=== PATIENT | female | born 1950 | race Caucasian/White ===

== ENCOUNTER 2023-04-18 08:05 | Outpatient (CLI) | payer OTHER, SELFPAY ==
--- NOTE | 2023-04-18 09:00 | NEURO_ITS ---
PATIENT NUMBER: [id number] IMPRESSION: Patient reports a history of left hand and bilateral lower extremity numbness. # Right ulnar neuropathy. # Left ulnar neuropathy with evidence of slowing across the elbow. # Normal lower extremity Nerve Conduction Study. # Normal EMG. # Clinical correlation is recommended. Nerve Conduction Studies Anti Sensory Summary Table Stim Site NR Peak (ms) P-T Amp (?V) Site1 Site2 Delta-P (ms) Dist (cm) Vincent (m/s) Left Median Anti Sensory (2-3nd Digit) Wrist 2.9 66.1 Wrist 2-3nd Digit 2.9 14.0 48 Wrist 2.9 44.9 Wrist 2-3nd Digit 2.9 14.0 48 Right Median Anti Sensory (2-3nd Digit) Wrist 2.8 66.5 Wrist 2-3nd Digit 2.8 14.0 50 Wrist 2.9 50.4 Wrist 2-3nd Digit 2.8 14.0 50 Left Radial Anti Sensory (Base 1st Digit) Wrist 1.9 20.7 Wrist Base 1st Digit 1.9 0.0 Right Radial Anti Sensory (Base 1st Digit) Wrist 1.5 44.4 Wrist Base 1st Digit 1.5 0.0 Left Sup Fibular Anti Sensory (Ant Lat Mall) 14 cm 4.0 10.3 14 cm Ant Lat Mall 4.0 16.0 40 Right Sup Fibular Anti Sensory (Ant Lat Mall) 14 cm 3.1 20.9 14 cm Ant Lat Mall 3.1 16.0 52 Left Sural Anti Sensory (Lat Mall) Calf 3.8 10.9 Calf Lat Mall 3.8 16.0 42 Right Sural Anti Sensory (Lat Mall) Calf 3.7 10.6 Calf Lat Mall 3.7 16.0 43 Left Ulnar Anti Sensory (5th Digit) Wrist 3.3 6.5 Wrist 5th Digit 3.3 14.0 42 Right Ulnar Anti Sensory (5th Digit) Wrist 2.7 19.2 Wrist 5th Digit 2.7 14.0 52 Motor Summary Table Stim Site NR Onset (ms) O-P Amp (mV) Site1 Site2 Delta-0 (ms) Dist (cm) Vincent (m/s) Left Median Motor (Abd Poll Brev) Wrist 2.7 5.2 Elbow Wrist 3.8 20.0 53 Elbow 6.5 4.4 Right Median Motor (Abd Poll Brev) Wrist 2.5 7.0 Elbow Wrist 3.9 20.0 51 Elbow 6.4 6.2 Left Peroneal Motor (Vastus Med) Ankle 3.5 3.5 Popit Ankle 8.5 38.0 45 Popit 12.0 2.7 B Fib Ankle 6.8 28.0 41 B Fib 10.3 2.4 Right Peroneal Motor (Vastus Med) Ankle 3.9 4.2 Popit Ankle 8.9 40.0 45 Popit 12.8 3.2 B Fib Ankle 6.6 28.0 42 B Fib 10.5 3.1 Left Tibial Motor (Abd Figueroa Brev) Ankle 5.8 7.6 Knee Ankle 8.4 38.0 45 Knee 14.2 4.1 Right Tibial Motor (Abd Figueroa Brev) Ankle 5.1 8.8 Knee Ankle 9.2 40.0 43 Knee 14.3 5.2 Left Ulnar Motor (Abd Dig Minimi) Wrist 2.3 5.1 A Elbow Wrist 6.7 29.0 43 A Elbow 9.0 2.7 B Elbow Wrist 3.7 19.0 51 B Elbow 6.0 2.6 Right Ulnar Motor (Abd Dig Minimi) Wrist 2.2 5.1 A Elbow Wrist 5.5 25.0 45 A Elbow 7.7 3.4 B Elbow Wrist 3.6 17.0 47 B Elbow 5.8 4.4 F Wave Studies NR F-Lat (ms) L-R F-Lat (ms) Left Median (Mrkrs) (Abd Poll Brev) 25.50 1.33 Right Median (Mrkrs) (Abd Poll Brev) 26.83 1.33 Left Peroneal (Mrkrs) (EDB) 51.72 0.94 Right Peroneal (Mrkrs) (EDB) 50.78 0.94 Left Tibial (Mrkrs) (Abd Hallucis) 56.56 3.59 Right Tibial (Mrkrs) (Abd Hallucis) 52.97 3.59 Left Ulnar (Mrkrs) (Abd Dig Min) 30.93 0.92 Right Ulnar (Mrkrs) (Abd Dig Min) 30.01 0.92 EMG Side Muscle Nerve Root Ins Act Fibs Amp Dur Recrt Comment Right 1stDorInt Ulnar C8-T1 Nml Nml Nml Nml Nml Right Ext Indicis Radial (Post Int) C7-8 Nml Nml Nml Nml Nml Right Ext Di
== END 2023-04-18 08:06 | disposition home or self-care (01) ==
PROVIDERS: PCP Family Medicine; Visit Provider Family Medicine
DX: G56.21 Lesion of ulnar nerve, right upper limb (principal); G56.22 Lesion of ulnar nerve, left upper limb; R20.2 Paresthesia of skin
CPT/HCPCS: 95886; 95913